=== PATIENT | female | born 1960 | race Caucasian/White ===

== ENCOUNTER 2016-09-10 15:00 | Emergency (ER) | payer MEDICAID ==
[~2016-09-10] VITALS: Ht 165.1 cm; Wt 63.6 kg
[2016-09-10 15:07] VITALS: BP 169/89; PULSE 97; RESP 18; O2SAT 97
--- NOTE | 2016-09-10 16:03 | ED.REPORT ---
HPI-Rash / Abscess Date of Service Sep 10, 2016 ED Provider: Randal Hopknis MD Pt is a 56 y.o. female with a hx of substance abuse, cellulitis, and COPD who presents to the ED c/o a worsening abscess to her left calf onset 1.5 weeks ago. Pt states that she was hospitalized for 15 days at [facility] 1 month ago for lower extremity cellulitis, after discharge she was told to follow up with a wound care clinic. She claims to not be taking any abx currently and is using saline spray on her wound. Pt was recently on a year long methadone program and began using heroin again 3 months ago. Pt reports recently skin popping heroin, over the past 4 days, to her thighs bilaterally and she is now concerned that this may have worsened her abscess and that the areas are becoming infected. She also reports anxiety, stress, productive green cough, increased exertion with daily activities, and left arm and palm numbness this morning. Pt states that she has not taken her medications in three days, including both Ativan and 0.5 Clonidine. She states that she is from out of the area and is here visiting her daughter and has a [address]. Nursing Notes Stated Complaint: SOB/ANXIETY/ABCESS/INFECTION LEG Chief Complaint: Skin Rash/Abscess Nursing Notes Reviewed: Yes (Initiative Gaming not reconciled) Allergies: Uncoded Allergies: PENICILLIN (Allergy, Intermediate, 09/10/16) Scheduled Clonidine (Clonidine) 0.1 Mg Tablet 0.1 MG PO DAILY Mupirocin (Mupirocin) 2 % Oin.pf.danilo 1 GM TP DAILY Sulfamethoxazole/Trimeth 800-160 mg (Bactrim DS) 1 Each Tablet 1 TABLET PO BID Scheduled PRN Clonazepam (Clonazepam) 2 Mg Tablet 2 MG PO BID PRN PRN For Anxiety General Time Seen by MD: 16:02 Chief Complaint Abscess Hx Obtained From: Patient Arrived By: Walk-in Onset Occurred: More than a week ago... Symptom Duration: Since onset Recent Healthcare: Recent hospitalization Similar Sx Previous: Yes Past Medical History Past Medical History Reports: COPD, Denies: Diabetes mellitus Past Surgical History Multiple abscess repairs Reports: Tubal ligation Social History Drug Use: IV drugs, Other (Heroin) Ambulatory Status Independent Review of Systems Abscess Increased exertion Respiratory: Reports: Prod cough, green Complete sys rev & neg: except as marked. Neurologic: Reports: Numbness (Left arm and palm) Psychiatric: Reports: Anxiety, Stress Physical Exam Initial Vital Signs Vital Signs (First) Date Time Temp Pulse Resp B/P Pulse Ox O2 Delivery O2 Flow Rate FiO2 09/10/16 15:07 37.4 97 18 169/89 97 Room Air Initial VS: Reviewed, Vital signs normal Head / Eyes: Atraumatic, Normocephalic Abdomen / GI: Soft, Non-tender, No distention Extremities: Vascular intact, Neuro intact Neurologic: Alert, Oriented, Nonfocal General/Constitutional: Awake, Alert Behavior: Positive: Anxious (I expect a component of withdraw ) Appearance / Presentation: Positive: Appears older than age Chronically ill Rash / Lesion Pattern: Positive: Track gandara (Right leg) 5x4 cm open wound to left calf, do not appreciate signs of cellulitis or infection. Area of right thigh is faintly erythematous, cannot tell if developing cellulitis or infection. Skin popping to left leg and right thigh, areas slightly indurated and erythematous, not flunctuant and no I&D possible at this time. Respiratory / Chest: Atraumatic, No respiratory distress, No wheezing Diminished Breath Sounds: Positive: Decreased bilateral Cardiovascular: Heart rate NL, Regular rhythm, Heart sounds NL, No gallop, No murmurs, No rubs, Peripheral circulation NL Interpretation & Diagnostics Lab Results Interpretation Lab Results Interpretation: Labs not indicated Re-Eval/Medical Decision Med Decision/Clinical Course This is a 56-year-old female visiting from out of area is answers chief complaint of concern for cellulitis or infection. The patient was relatively recently admitted for complex leg infection out of area where she required IV Anaprox. She now has a chronic Wound, and is concerned that she is developed cellulitis. She is a substance abuser and skin popping As also developed some redness in several spots or she is injected recently. He is out of her Klonopin 10 and clonidine and has been out of her Klonopin for 3 days-that she is planning to go back where she is living and has a regular meds. She is quite anxious, and there may be a slight component of withdrawal exacerbating it. However she is mentating, he is not hallucinating, she is not tachycardic, she is not diaphoretic. She has appropriate decisional capacity. She has no murmurs. She has multiple track gandara along the right extremity lower extremity in particular. On the left calf I do not appreciate any visible signs of actual cellulitis or active infection at the sizable wound she has there. Her concern Bactroban was applied. Patient does have 3 spots one on the left leg 2 on the right leg both on the thighs where she is recently injected and is a little bit of induration below but redness, but no fluctuance or anything that seems imminently ready for incision and drainage. Her developing say license and infection is a concern. These areas were circumscribed with a skin pen to facilitate following. It was explained that if they develop into an abscess she might need to be seen again to have incision and drainage. Initial recommendations clindamycin, but the patient states she really "does not like clindamycin. I discussed Bactrim plus Keflex, but the patient states she does not take cephalosporins or penicillins. In the end we she agreed to at least start on Bactrim for MRSA coverage. The patient has chronic COPD does not have her inhaler and will request a regular treatment. She does not appear short of breath, does not have audible bronchospasm and are not signing signs of an acute exacerbation-a routine nebulizer DuoNeb was provided. She was being discharged. She is advised the importance of following up for substance abuse. Written for course of Bactrim. I written for Bactroban. And provided a few days of a refill of her clonazepam and clonidine after confirming doses with her pharmacy. Patient is discharged in much improved condition. Source of Hx: Old records (none in EMR) Differential Diagnosis: Positive: Cellulitis, Negative: Allergic reaction, Anorectal abscess, Anthrax, cutaneous, Chicken pox, Contact dermatitis, Hand, foot, mouth disease, Impetigo, Intertrigo, Richard mt spotted fever, Rosacea, Scabies Counseled Regarding: Diagnosis, Need for follow-up, When/why to return to ED Discharge & Departure Impression: Primary Impression: Cellulitis Site of cellulitis: extremity Site of cellulitis of extremity: lower extremity Laterality: unspecified laterality Qualified Code: L03.119 - Cellulitis of unspecified part of limb Additional Impressions: Encounter for wound re-check Substance abuse Disposition: Home Discharge Condition All VS Reviewed: Yes Condition: Stable Additional Instructions: 1. I do not appreciate visible signs of cellulitis or infection of the left calf wound. Apply the ointment mupirocin daily. Wash wound daily and change bandage. 2. You are developing early signs of infection at several sites in the upper legs were you have injected. These have not developed and the formal abscesses that would require drainage at this time, but you should be on antibiotics- should stop injecting, and he if there is any worsening at those sites he should be seen in recheck. 3. As discussed, take the antibiotic Bactrim (sulfamethoxazole/trimethoprim) 1 tab twice a day for 10 days. 4. I have written a refill of her clonazepam for 5 days. Use only as directed. I do suspect a component of withdrawal is affecting her symptoms and anxiety. Note: This medication contains a controlled substance and does cause drowsiness, no driving for at least 4 hours after taking. 5. I have written a refill for 15 tabs of clonidine. 6. We provided a routine DuoNeb nebulizer in the department, resume your inhaler when you get home. 7. Continue to work on not using. He was indicated that you do have resources to follow up with when you return home. Please do so. 8. If you develop new or worsening symptoms (fever, increased redness, swelling - then you need to be seen and reevaluated) Referrals: NOPCP (PCP) Wilton Attestation Portions of this note were transcribed by Yariel Pablo. I, Dr. Hopkins personally performed the history, physical exam and medical decision-making; I reviewed and confirmed the accuracy of the information in the transcribed note. Signed by: Wilton Tejeda, 09/10/2016 and 1655. Randal Hopkins MD Sep 10, 2016 16:03 YARIEL PABLO Sep 10, 2016 16:34
[2016-09-10] MEDS ORDERED: Mupirocin 2% 22 Gm Ointment TOPICAL ONE (16:25)
[2016-09-10] MEDS ORDERED: KLO2T PO (16:25)
[2016-09-10] MEDS ORDERED: MUPI1OIN6 TP (16:25)
[2016-09-10] MEDS ORDERED: CLON0.1T PO (16:25)
[2016-09-10] MEDS ORDERED: Trimethoprim-Sulfa 160 mg-800 mg Tablet PO ONE (16:25)
[2016-09-10] MEDS ORDERED: SULF1TAB7 PO (16:25)
[2016-09-10] MEDS ORDERED: LORazepam 2 mg Tablet PO ONE (16:25)
[2016-09-10] MEDS ORDERED: Albuterol-Ipratropium 3 mL Inhalation Solution NEB ONE (16:25)
[2016-09-10 16:35] VITALS: PULSE 85; RESP 18; O2SAT 95
[2016-09-10 17:09] VITALS: BP 177/89; PULSE 88; O2SAT 96
[2016-09-11] MEDS ORDERED: BUPR1FIL3 SL (16:24)
== END 2016-09-10 17:08 | disposition home or self-care (01) ==
LOC: SED 15:00
DX: L03.116 Cellulitis of left lower limb (principal); F19.10 Other psychoactive substance abuse, uncomplicated; R05 Cough; Z51.89 Encounter for other specified aftercare; J44.9 Chronic obstructive pulmonary disease, unspecified; E11.9 Type 2 diabetes mellitus without complications
CPT/HCPCS: 94664; 99283; J7620

== ENCOUNTER 2016-09-11 13:30 | Emergency (ER) | payer MEDICAID ==
[~2016-09-11] VITALS: Ht 165.1 cm; Wt 63.3 kg
[~2016-09-11 13:30] MED LIST: CLON0.1T PO; KLO2T PO; MUPI1OIN6 TP; SULF1TAB7 PO
[2016-09-11 13:33] VITALS: BP 119/74; PULSE 78; RESP 15; O2SAT 95
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
[2016-09-11] MEDS ORDERED: Buprenorphine 2 mg SL Tablet SL ONE (14:20)
[2016-09-11] MEDS ORDERED: Ipratropium 0.02% 0.5 mg/2.5 mL Inhalation Solution NEB ONE (14:20)
--- NOTE | 2016-09-11 15:37 | DRSVH ---
PROCEDURE: X-RAY CHEST ONE VIEW, PORTABLE ([id number]) INDICATIONS: cough TECHNIQUE: One view of the chest was acquired. COMPARISON: None. FINDINGS: Surgical changes and devices: None. Lungs and pleura: No pleural effusions or pneumothorax. Linear opacity noted in the right lung base which could represent scarring versus atelectasis. Patchy opacity in the left lung base which represe nt atelectasis versus pneumonia. Mediastinum: Mediastinal contours appear normal. Heart size is normal. Bones and chest wall: No suspicious bony lesions. Overlying soft tissues appear unremarkable. IMPRESSION: Patchy opacity left lung base compatible with atelectasis versus pneumonia. Please correl ate with clinical and laboratory data. Dictated by: Guillermina Mccord MD, PhD on 09/11/2016 at 15:35 Approved by: Guillermina Mccord MD, PhD on 09/11/2016 at 15:35
[2016-09-11] MEDS ORDERED: BUPR1FIL3 SL (16:24)
== END 2016-09-11 16:32 | disposition home or self-care (01) ==
LOC: SED 13:33
DX: F11.23 Opioid dependence with withdrawal (principal); J18.9 Pneumonia, unspecified organism; L03.119 Cellulitis of unspecified part of limb; Z88.0 Allergy status to penicillin

== ENCOUNTER 2016-09-11 20:21 | Emergency (ER) | payer MEDICAID ==
[~2016-09-11] VITALS: Ht 165.1 cm; Wt 68.2 kg
[~2016-09-11 20:21] MED LIST changes: +BUPR1FIL3 SL
[2016-09-11 20:45] VITALS: BP 178/95; PULSE 92; RESP 16; O2SAT 96
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
[2016-09-11] MEDS ORDERED: Buprenorphine 2 mg SL Tablet SL ONE (22:05)
[2016-09-11] MEDS ORDERED: LORazepam 2 mg Tablet PO ONE (23:20)
[2016-09-12 00:51] VITALS: BP 162/88; PULSE 88; RESP 16; O2SAT 95
== END 2016-09-12 00:52 | disposition home or self-care (01) ==
LOC: SED 20:21
DX: F11.23 Opioid dependence with withdrawal (principal); F13.230 Sedative, hypnotic or anxiolytic dependence with withdrawal, uncomplicated; J44.9 Chronic obstructive pulmonary disease, unspecified; F17.200 Nicotine dependence, unspecified, uncomplicated; Z88.0 Allergy status to penicillin